=== PATIENT | female | born 1945 | race Asian ===

== ENCOUNTER 2016-04-09 12:29 | Emergency (ER) | payer OTHER ==
[~2016-04-09] VITALS: Ht 160 cm; Wt 64.0 kg
[2016-04-09 12:32] VITALS: Ht 160 cm; Wt 64.0 kg
[2016-04-09] MEDS ORDERED: ONDANSETRON 4 MG INJ IV STA (13:14)
[2016-04-09] MEDS ORDERED: HYDROmorphONE 1 MG/ML SYG IV STA (13:14)
[2016-04-09 13:53] LABS: BASOPHILS % 0.1 % (0.0-2.0); EOSINOPHILS % 0.1 % (0.0-7.0); HEMATOCRIT 32.6 % (37.0-47.0); HEMOGLOBIN 11.2 g/dl (12.0-16.0); LYMPHOCYTES # 0.6 10^3/ul (0.8-2.9); LYMPHOCYTES % 4.7 % (15.0-51.0); MEAN CORPUSCULAR HEMOGLOBIN 31.3 pg (29.0-33.0); MEAN CORPUSCULAR HGB CONC 34.2 g/dl (32.0-37.0); MEAN CORPUSCULAR VOLUME 91.6 fl (82.0-101.0); MEAN PLATELET VOLUME 7.3 fl (7.4-10.4); MONOCYTE # 1.2 10^3/ul (0.3-0.9); MONOCYTES % 10.6 % (0.0-11.0); NEUTROPHILS % 84.5 % (39.0-77.0); PLATELET COUNT 188 10^3/UL (140-440); RED BLOOD COUNT 3.56 10^6/ul (4.20-5.40); RED CELL DISTRIBUTION WIDTH 12.7 % (11.5-14.5); UNCORRECTED WBC 11.8 10^3/ul (4.8-10.8); WHITE BLOOD COUNT 11.8 10^3/ul (4.8-10.8)
[2016-04-09 13:58] LABS: POTASSIUM 3.8 mmol/L (3.5-5.1)
[2016-04-09 14:00] LABS: CREATININE 0.91 mg/dl (0.44-1.00)
[2016-04-09 14:01] LABS: ALBUMIN/GLOBULIN RATIO 0.93; CALCIUM 8.4 mg/dl (8.4-10.2); TOTAL PROTEIN 6.2 g/dl (6.1-8.1)
[2016-04-09 14:03] LABS: CONDITION 1
--- NOTE | 2016-04-09 14:37 | RADRPT ---
PROCEDURE: US Abdomen (right upper quadrant). CLINICAL INDICATION: Abdominal pain. TECHNIQUE: Multiple real-time longitudinal and transverse images of the right upper quadrant of th e abdomen were acquired utilizing a curved array transducer. Images were reviewed on a high-resoluti on PACS workstation. COMPARISON: None FINDINGS: The liver is normal in size and echogenicity without focal mass or intrahepatic biliary dilatation. Multiple stones are present within the gallbladder. The gallbladder wall is mildly thickened measu ring 4 mm. No intrahepatic biliary dilatation is seen. The common bile duct is prominent measuri ng 7.3 mm in maximal dimension. The visualized portions of the pancreas are unremarkable with obscu ration of the tail of the pancreas. No free fluid is identified. The right kidney measures 10.3 cm in length. There is normal echogenicity within the right kidney. There is no perinephric fluid collection. No hydronephrosis, mass, or calculus is seen. IMPRESSION: 1. Cholelithiasis with gallbladder wall thickening. The findings may represent acute calculus chol ecystitis in the correct clinical setting. 2. Prominent common bile duct (7.3 mm). Correlate with bilirubin levels. If there is concern for choledocholithiasis/cholestasis, consider MRCP. RPTAT: QQ .Jean-Pierre Glass MD, Date Time Electronically viewed and signed by .Jean-Pierre Glass MD, MD on 04/09/2016 14:36 .A/
[2016-04-09] MEDS ORDERED: ERTAPENEM SODIUM 1 GM in SOD CHLORIDE 0.9% 100 ML IVPB ONE (15:00)
--- NOTE | 2016-04-09 16:03 | ERA ---
ER Documentation Chief Complaint Date/Time DATE: 04/09/16 TIME: 16:01 Chief Complaint ap x 2 days with vomiting HPI This 70-year-old female who is complaining of 2 days of epigastric pain with low -grade fever and vomiting. She says she has had pain off and on for the past week but again more consistent in the past few days. She says the pain is worse after eating. No diarrhea no chest pain shortness of breath. No blood or bile in her vomit ROS All systems reviewed and are negative except as per history of present illness. Medications Home Meds No Active Prescriptions or Reported Meds Allergies Allergies: Coded Allergies: No Known Allergy (Unverified , 04/09/16) PMhx/Soc History of Surgery: Yes (left knee sx) Anesthesia Reaction: No Hx Neurological Disorder: No Hx Respiratory Disorders: No Hx Cardiac Disorders: Yes (HTN) Hx Psychiatric Problems: No Hx Miscellaneous Medical Probl: No Hx Alcohol Use: No Hx Substance Use: No Hx Tobacco Use: No Smoking Status: Never smoker FmHx Family History: No coronary disease Physical Exam Vitals Vital Signs Date Time Temp Pulse Resp B/P Pulse Ox O2 Delivery O2 Flow Rate FiO2 04/09/16 12:32 100.1 87 20 124/59 99 Physical Exam Const: Well-developed, well-nourished Head: Atraumatic, normocephalic Eyes: Normal Conjunctiva, PERRLA, EOMI, normal sclera, no nystagmus ENT: Normal External Ears, Nose and Mouth, moist mucus membranes. Neck: Full range of motion. No meningismus, no lymphadenopathy. Resp: Clear to auscultation bilaterally, no wheezing, rhonchi, rales Cardio: Regular rate and rhythm, no murmurs, S1 S2 present Abd: Soft, moderate epigastric and right upper quadrant tenderness non distended. Normal bowel sounds, no guarding or rebound, no pulsitile abdominal masses or bruits Skin: No petechiae or rashes, no ecchymosis , no maculopapular rash Back: No midline or flank tenderness Ext: No cyanosis, or edema, FROM x 4, normal inspection, neurovascularly intact x 4 Neur: Awake and alert, STR 5/5 x 4, sensation intact x 4, no focal findings, cerebellum intact Psych: Normal Mood and Affect Result Diagram: 04/09/16 1340 04/09/16 1340 Results 24 hrs Laboratory Tests Test 04/09/16 13:40 Alanine Aminotransferase (ALT/SGPT) 46IU/L Albumin 3.0g/dl Albumin/Globulin Ratio 0.93 Alkaline Phosphatase 116IU/L Anion Gap 14 Aspartate Amino Transf (AST/SGOT) 40IU/L Basophils # 0.010^3/ul Basophils % 0.1% Blood Morphology Comment Blood Urea Nitrogen 22mg/dl Calcium Level 8.4mg/dl Carbon Dioxide Level 26mmol/L Chloride Level 100mmol/L Creatinine 0.91mg/dl Direct Bilirubin 0.00mg/dl Eosinophils # 0.010^3/ul Eosinophils % 0.1% Globulin 3.20g/dl Glucose Level 157mg/dl Hematocrit 32.6% Hemoglobin 11.2g/dl Indirect Bilirubin 0.0mg/dl Lipase 75U/L Lymphocytes # 0.610^3/ul Lymphocytes % 4.7% Mean Corpuscular Hemoglobin 31.3pg Mean Corpuscular Hemoglobin Concent 34.2g/dl Mean Corpuscular Volume 91.6fl Mean Platelet Volume 7.3fl Monocytes # 1.210^3/ul Monocytes % 10.6% Neutrophils # 10.010^3/ul Neutrophils % 84.5% Nucleated Red Blood Cells # 0.010^3/ul Nucleated Red Blood Cells % 0.0/100WBC Platelet Count 67383^3/UL Potassium Level 3.8mmol/L Red Blood Count 3.5610^6/ul Red Cell Distribution Width 12.7% Sodium Level 136mmol/L Total Bilirubin 0.0mg/dl Total Protein 6.2g/dl White Blood Count 11.810^3/ul Current Medications Medications (Trade) Dose Ordered Sig/Keny Route PRN Reason Start Time Stop Time Status Last Admin Dose Admin Hydromorphone HCl (Dilaudid) 1 mg ONCE STAT IV 04/09/16 13:14 04/09/16 13:15 DC 04/09/16 13:45 Ondansetron HCl 4 mg 4 mg ONCE STAT IV 04/09/16 13:14 04/09/16 13:15 DC 04/09/16 13:45 Ertapenem/Sodium Chloride (Invanz/NS) 100 ml @ 200 mls/hr ONCE ONCE IVPB 04/09/16 15:00 04/09/16 15:29 DC Procedures/MDM PROCEDURE: US Abdomen (right upper quadrant). CLINICAL INDICATION: Abdominal pain. TECHNIQUE: Multiple real-time longitudinal and transverse images of the right upper quadrant of the abdomen were acquired utilizing a curved array transducer. Images were reviewed on a high-resolution PACS workstation. COMPARISON: None FINDINGS: The liver is normal in size and echogenicity without focal mass or intrahepatic biliary dilatation. Multiple stones are present within the gallbladder. The gallbladder wall is mildly thickened measuring 4 mm. No intrahepatic biliary dilatation is seen. The common bile duct is prominent measuring 7.3 mm in maximal dimension. The visualized portions of the pancreas are unremarkable with obscuration of the tail of the pancreas. No free fluid is identified. The right kidney measures 10.3 cm in length. There is normal echogenicity within the right kidney. There is no perinephric fluid collection. No hydronephrosis, mass, or calculus is seen. IMPRESSION: 1. Cholelithiasis with gallbladder wall thickening. The findings may represent acute calculus cholecystitis in the correct clinical setting. 2. Prominent common bile duct (7.3 mm). Correlate with bilirubin levels. If there is concern for choledocholithiasis/cholestasis, consider MRCP. RPTAT: QQ .Jean-Pierre Glass MD, MD Date Time Electronically viewed and signed by .Jean-Pierre Glass MD, on 04/09/2016 14:36 .A/ CC: YEIMI RAO DO Patient has evidence of cholecystitis, fever, slight white count elevation with left shift, LFTs are normal. Spoke with general surgery Dr. Elmore and the patient will be admitted if approved by insurance otherwise will be transferred out Given 1 g of Invanz Departure Diagnosis: Primary Impression: Cholecystitis Condition: Stable YEIMI RAO DO Apr 09, 2016 16:03
--- NOTE | 2016-04-09 17:32 | RADRPT ---
PROCEDURE: MRI abdomen without contrast; MRCP CLINICAL INDICATION: abdominal pain TECHNIQUE: Multiplanar, multisequence imaging of the abdomen was obtained. Imaging includes axial and coronal T2, T2 fat sat images In addition, a dedicated high T2 signal intensity MRCP images were obtained in multiple planes with 3-D reconstructions. COMPARISON: Ultrasound of the same date FINDINGS: There are mild inflammatory changes seen around the pancreas with fat stranding. Trace fluid is see n in the peripancreatic space which tracts inferiorly within the retroperitoneum. There is trace in tra-abdominal ascites as well. The pancreatic parenchyma is homogeneous without evidence of necrosi s. There is no elevated T1 signal to suggest hemorrhage. There is no evidence of fluid collection. There is 7 mm rounded T2 hyperintensity seen in the pancreatic head likely a small cyst. Numerous gallstones are seen layering in the gallbladder. There is mild gallbladder wall thickening with trace pericholecystic fluid. There is no intrahepatic biliary ductal dilatation. The common duct measures up to 5 mm in diameter which is nondilated. No filling defect is seen in the common duct. There is uniform signal intensity of the liver without evidence of mass. There is mild hepatomegaly. There is no abnormal enhancement. The portal vein demonstrates a flow void The kidneys appear symmetric without hydronephrosis or mass. There is mild fat stranding around the left kidney which is indeterminate. The adrenal glands moderate within normal limits. There is no evidence of bowel obstruction . There is a fecal filled colon. Aortic atherosclerosis is present. There are degenerative changes of the lumbar spine. IMPRESSION: There are mild to moderate inflammatory changes around the pancreas consistent with acute pancreatit is. There is no evidence of hemorrhage, necrosis, or fluid collection. A 7 mm pancreatic cyst is se en within the pancreatic head which can be reassessed after 6 months. Numerous gallstones are seen with findings suggestive for possible cholecystitis and this can be con firmed with nuclear medicine study. There is no intrahepatic or extrahepatic biliary ductal dilatation with no visible stones. If there is further concern ERCP can be performed. Hepatomegaly. Mild left perinephric fat stranding may be secondary inflammation and can be correlated with urinaly sis. Fecal filled colon. RPTAT: AA .Janes Boo MD, MD Date Time Electronically viewed and signed by .Janes Boo MD, MD on 04/09/2016 17:32 .J/
--- NOTE | 2016-04-09 17:50 | CONS ---
DATE OF ADMISSION: 04/09/2016 DATE OF CONSULTATION: 04/09/2016 HISTORY OF PRESENT ILLNESS: Mr. Beard is a 70-year-old female who presented to [facility] due to epigastric abdominal pain and low grade fever with nausea and emesis. She has had sy mptoms for the past week, but worsened today. She denies prior episodes. PAST MEDICAL HISTORY: Hypertension. PAST SURGICAL HISTORY: She had a knee surgery. MEDICATIONS: Antihypertension medications. SOCIAL HISTORY: Denies drinking, drug use or smoking. PHYSICAL EXAMINATION: GENERAL: She is a well-nourished, well-developed female in no apparent distress. VITAL SIGNS: She is currently T-max 100.1, heart rate 87, BP 136/88. CHEST: Clear to auscultation bilaterally. HEART: Regular rhythm. ABDOMEN: Soft, nondistended with some slight epigastric tenderness. An ultrasound revealed cholelithiasis with gallbladder wall thickening. LABORATORY DATA: Revealed white count of 12, hematocrit 33 and platelets of 188. Sodium 136, potas sium 3.8, chloride 100, CO2 26, BUN and creatinine 22 and 0.9 and glucose of 157. ASSESSMENT AND PLAN: Mr. Beard is a 70-year-old female with biliary colic versus acute cholecystitis . I discussed proceeding with a laparoscopic cholecystectomy on this admission. The patient wishes to proceed. We will proceed if the patient is not transferred out to another hospital. I discusse d laparoscopic, possible open cholecystectomy, possible cholangiogram with the patient and the daugh ter. All benefits, risks, alternatives were discussed in detail. Questions answered. The patient elects to proceed. Dictated By: WILDER JUNE/LARISSA Conf#: [id number] DID#: [id number]
[2016-04-09 19:04] VITALS: BP 141/63; PULSE 97; RESP 20; TEMP 101.8
[2016-04-09] MEDS ORDERED: ACETAMINOPHEN 325 MG TAB ONE (19:19)
[2016-04-09] MEDS ORDERED: ACETAMINOPHEN 325 MG TAB PO ONE (19:30)
== END 2016-04-09 19:20 | disposition short-term general hospital (02) ==
LOC: E/R 12:29
DX: K81.9 Cholecystitis, unspecified (principal); I10 Essential (primary) hypertension; R11.10 Vomiting, unspecified
CPT/HCPCS: 74181; 76705; 80053; 83690; 85025; 96374; 96375; J1170; J1335; J2405; Z7502; Z7610

== ENCOUNTER 2016-05-09 22:10 | Emergency (ER) | payer OTHER ==
[~2016-05-09] VITALS: Ht 152.4 cm; Wt 81.0 kg
[2016-05-09 22:16] VITALS: Ht 152.4 cm; Wt 81.0 kg
[2016-05-10] MEDS ORDERED: SOD CHLORIDE 0.9% 500 ML IV STA (00:29)
[2016-05-10] MEDS ORDERED: morphine 4 MG/ML VIAL IV STA (00:29)
[2016-05-10] MEDS ORDERED: LIDOCAINE/MYLANTA 40 ML BTL PO STA (00:29)
[2016-05-10] MEDS ORDERED: FAMOTIDINE 20 MG INJ IV STA (00:29)
[2016-05-10] MEDS ORDERED: ONDANSETRON 4 MG INJ IV STA (00:29)
[2016-05-10 01:15] LABS: ADD UMIC NO; URINE BILIRUBIN (Dip) NEGATIVE (NEGATIVE); URINE BLOOD (Dip) NEGATIVE (NEGATIVE); URINE COLOR LT. YELLOW (YELLOW); URINE GLUCOSE (Dip) NEGATIVE (NEGATIVE); URINE KETONES (Dip) NEGATIVE (NEGATIVE); URINE LEUKOCYTE ESTERASE (Dip) NEGATIVE (NEGATIVE); URINE NITRITE (Dip) NEGATIVE (NEGATIVE); URINE TOTAL PROTEIN (Dip) NEGATIVE (NEGATIVE); URINE UROBILINOGEN (Dip) 0.2 E.U./dL (0.1-1.0)
[2016-05-10 01:17] LABS: BASOPHILS % 0.5 % (0.0-2.0); EOSINOPHILS # 0.4 10^3/ul (0.0-0.5); EOSINOPHILS % 4.8 % (0.0-7.0); HEMATOCRIT 32.2 % (37.0-47.0); HEMOGLOBIN 10.8 g/dl (12.0-16.0); LYMPHOCYTES # 2.1 10^3/ul (0.8-2.9); LYMPHOCYTES % 28.2 % (15.0-51.0); MEAN CORPUSCULAR HEMOGLOBIN 31.4 pg (29.0-33.0); MEAN CORPUSCULAR HGB CONC 33.7 g/dl (32.0-37.0); MEAN CORPUSCULAR VOLUME 93.4 fl (82.0-101.0); MEAN PLATELET VOLUME 7.6 fl (7.4-10.4); MONOCYTE # 0.7 10^3/ul (0.3-0.9); MONOCYTES % 8.8 % (0.0-11.0); NEUTROPHIL # 4.3 10^3/ul (1.6-7.5); NEUTROPHILS % 57.7 % (39.0-77.0); PLATELET COUNT 278 10^3/UL (140-440); RED BLOOD COUNT 3.45 10^6/ul (4.20-5.40); RED CELL DISTRIBUTION WIDTH 14.8 % (11.5-14.5); UNCORRECTED WBC 7.4 10^3/ul (4.8-10.8); WHITE BLOOD COUNT 7.4 10^3/ul (4.8-10.8)
[2016-05-10 01:19] LABS: CONDITION 1; LH ANALYZER COMMENTS 1
[2016-05-10 01:27] LABS: ALBUMIN 4.2 g/dl (3.3-4.9); CHLORIDE 107 mmol/L (97-110)
[2016-05-10 01:28] LABS: POTASSIUM 4.6 mmol/L (3.5-5.1); SODIUM 147 mmol/L (135-144)
[2016-05-10 01:30] LABS: ALANINE AMINOTRANSFERASE 21 IU/L (13-69); ALKALINE PHOSPHATASE 83 IU/L (42-121); ANION GAP 19 (8-16); ASPARTATE AMINO TRANSFERASE 34 IU/L (15-46); BLOOD UREA NITROGEN 14 mg/dl (7-20); CARBON DIOXIDE 26 mmol/L (21-31); CREATININE 0.63 mg/dl (0.44-1.00); TOTAL PROTEIN 7.7 g/dl (6.1-8.1)
[2016-05-10 01:31] LABS: CALCIUM 9.2 mg/dl (8.4-10.2); GLUCOSE 89 mg/dl (70-220)
[2016-05-10 01:43] LABS: TROPONIN-I < 0.012 ng/ml (0.00-0.12)
--- NOTE | 2016-05-10 01:51 | RADRPT ---
PROCEDURE: XR Chest. CLINICAL INDICATION: Abdominal pain TECHNIQUE: Rule AP portable chest COMPARISON: None. FINDINGS: Cardiomegaly with tortuosity and ectasia of the thoracic aorta. .The lungs are clear without pleura l effusion or focal consolidation. No pneumothorax. The osseous structures and soft tissues are unre markable. IMPRESSION: 1. No evidence for active cardiopulmonary disease. 2. Cardiomegaly. RPTAT:AAJJ Vikki Gonzalez Physician Date Time Electronically viewed and signed by Vikki Gonzalez Physician on 05/10/2016 01:51 ANGELO/
[2016-05-10] MEDS ORDERED: ONDA4TAB14 PO (01:53)
[2016-05-10] MEDS ORDERED: RANI150T9 PO (01:53)
[2016-05-10] MEDS ORDERED: TRAM50TA2 PO (01:53)
--- NOTE | 2016-05-10 02:00 | ERD ---
ER Documentation Chief Complaint Date/Time DATE: 05/10/16 TIME: 01:55 Chief Complaint pt recent dx with stomach ulcer HPI This is a 70-year-old female comes over once of abdominal pain. Recently diagnosed with stomach ulcer versus stomach cancer. Patient has follow-up appointment with oncology in 4-5 days. Pain is mild to moderate intensity burning in sensation. No other current complaints. ROS All systems reviewed and are negative except as per history of present illness. Medications Home Meds Active Scripts Ondansetron (Ondansetron Odt) 4 Mg Tab.rapdis, 4 MG PO Q6H Y for NAUSEA AND/OR VOMITING, #10 TAB Prov:MATY RINCON 05/10/16 Ranitidine Hcl* (Zantac*) 150 Mg Tablet, 150 MG PO BID Y for EPIGASTRIC PAIN, # 30 TAB Prov:MATY RINCON. 05/10/16 Tramadol HCl (Tramadol HCl) 50 Mg Tablet, 50 MG PO Q4 Y for PAIN, #20 TAB Prov:MATY RINCON 05/10/16 Allergies Allergies: Coded Allergies: No Known Allergy (Unverified , 04/09/16) PMhx/Soc History of Surgery: Yes (left knee sx, GALLSTONE REMOVAL) Anesthesia Reaction: No Hx Neurological Disorder: No Hx Respiratory Disorders: No Hx Cardiac Disorders: Yes (HTN) Hx Psychiatric Problems: No Hx Miscellaneous Medical Probl: No Hx Alcohol Use: No Hx Substance Use: No Hx Tobacco Use: No Smoking Status: Never smoker Physical Exam Vitals Vital Signs Date Time Temp Pulse Resp B/P Pulse Ox O2 Delivery O2 Flow Rate FiO2 05/09/16 22:16 98.5 85 18 149/68 98 Physical Exam Const: [] Head: Atraumatic Eyes: Normal Conjunctiva ENT: Normal External Ears, Nose and Mouth. Neck: Full range of motion..~ No meningismus. Resp: Clear to auscultation bilaterally Cardio: Regular rate and rhythm, no murmurs Abd: Soft, non tender, non distended. Normal bowel sounds Skin: No petechiae or rashes Back: No midline or flank tenderness Ext: No cyanosis, or edema Neur: Awake and alert Psych: Normal Mood and Affect Result Diagram: 05/10/16 0050 05/10/16 0050 Results 24 hrs Laboratory Tests Test 05/10/16 00:01 05/10/16 00:50 Urine Bilirubin NEGATIVE Urine Clarity CLEAR Urine Color LT. YELLOW Urine Glucose NEGATIVE% Urine Hemoglobin NEGATIVE Urine Ketones NEGATIVE Urine Leukocyte Esterase NEGATIVE Urine Nitrite NEGATIVE Urine Specific [place] 1.010 Urine Total Protein NEGATIVE Urine Urobilinogen 0.2 E.U./dL Urine pH 7.0 Alanine Aminotransferase (ALT/SGPT) 21IU/L Albumin 4.2g/dl Albumin/Globulin Ratio 1.20 Alkaline Phosphatase 83IU/L Anion Gap 19 Aspartate Amino Transf (AST/SGOT) 34IU/L Basophils # 0.010^3/ul Basophils % 0.5% Blood Morphology Comment Blood Urea Nitrogen 14mg/dl Calcium Level 9.2mg/dl Carbon Dioxide Level 26mmol/L Chloride Level 107mmol/L Creatinine 0.63mg/dl Direct Bilirubin 0.00mg/dl Eosinophils # 0.410^3/ul Eosinophils % 4.8% Globulin 3.50g/dl Glucose Level 89mg/dl Hematocrit 32.2% Hemoglobin 10.8g/dl Indirect Bilirubin 0.0mg/dl Lipase 132U/L Lymphocytes # 2.110^3/ul Lymphocytes % 28.2% Mean Corpuscular Hemoglobin 31.4pg Mean Corpuscular Hemoglobin Concent 33.7g/dl Mean Corpuscular Volume 93.4fl Mean Platelet Volume 7.6fl Monocytes # 0.710^3/ul Monocytes % 8.8% Neutrophils # 4.310^3/ul Neutrophils % 57.7% Nucleated Red Blood Cells # 0.010^3/ul Nucleated Red Blood Cells % 0.0/100WBC Platelet Count 83938^3/UL Potassium Level 4.6mmol/L Red Blood Count 3.4510^6/ul Red Cell Distribution Width 14.8% Sodium Level 147mmol/L Total Bilirubin 0.0mg/dl Total Protein 7.7g/dl Troponin I < 0.012ng/ml White Blood Count 7.410^3/ul Current Medications Medications (Trade) Dose Ordered Sig/Keny Route PRN Reason Start Time Stop Time Status Last Admin Dose Admin Sodium Chloride (NS) 500 ml @ 500 mls/hr Q1H STAT IV 05/10/16 00:29 05/10/16 01:28 DC 05/10/16 00:54 Morphine Sulfate (morphine) 4 mg ONCE STAT IV 05/10/16 00:29 05/10/16 00:30 DC 05/10/16 00:54 Ondansetron HCl (Zofran Inj) 4 mg ONCE STAT IV 05/10/16 00:29 05/10/16 00:30 DC 05/10/16 00:54 Famotidine (Pepcid Iv) 20 mg ONCE STAT IV 05/10/16 00:29 05/10/16 00:30 DC 05/10/16 00:54 Miscellaneous Medication (Gi Cocktail (2)) 40 ml ONCE STAT PO 05/10/16 00:29 05/10/16 00:30 DC 05/10/16 00:54 Procedures/MDM Medical decision makin-year-old female with abdominal pain. Abdominal pain has since resolved. At this point is clinically stable for outpatient management. She will be discharged home. Follow-up with PCP. Return in 8 hours for serial abdominal exams. Departure Diagnosis: Primary Impression: Abdominal pain Abdominal location: epigastric Qualified Code: R10.13 - Epigastric pain Condition: Stable Patient Instructions: Abdominal Pain MATY RINCON May 10, 2016 02:00
[2016-05-10 02:20] VITALS: BP 115/62; PULSE 67; RESP 18; TEMP 98.5
== END 2016-05-10 02:20 | disposition home or self-care (01) ==
LOC: E/R 22:10
DX: R10.13 Epigastric pain (principal); I10 Essential (primary) hypertension
CPT/HCPCS: 36415; 71010; 80053; 81003; 83690; 84484; 85025; 93005; 96374; 96375; J2270; J2405; J7040; Z7502; Z7610

== ENCOUNTER 2016-07-18 12:36 | Day surgery (SDC) | payer OTHER ==
[~2016-07-18] VITALS: Ht 149.9 cm; Wt 57.4 kg
[~2016-07-18 12:36] MED LIST: ONDA4TAB14 PO; RANI150T9 PO; TRAM50TA2 PO
[2016-07-18 13:25] VITALS: Ht 149.9 cm; Wt 57.4 kg
[2016-07-18] MEDS ORDERED: FER325 PO (13:42)
[2016-07-18] MEDS ORDERED: MONT4TAB10 PO (13:42)
[2016-07-18] MEDS ORDERED: PANT40TA4 PO (13:42)
[2016-07-18] MEDS ORDERED: MECL-77 PO (13:42)
[2016-07-18] MEDS ORDERED: OMEP40CA6 PO (13:42)
[2016-07-18] MEDS ORDERED: AMLO-147 PO (13:42)
[2016-07-18 13:57] VITALS: BP 134/64; PULSE 68; RESP 17
[2016-07-18] MEDS ORDERED: PROPOFOL 20 ML ONE (15:41)
[2016-07-18 16:18] VITALS: BP 137/61; RESP 20
--- NOTE | 2016-07-19 04:11 | GILP ---
DATE OF PROCEDURE: 07/18/2016 PROCEDURE: Esophagogastroduodenoscopy with biopsies. BRIEF HISTORY AND INDICATIONS: The patient is being evaluated for dyspepsia. PREMEDICATION: Monitored anesthesia care by anesthesiologist. SURGEON: Bella Lemus MD. INSTRUMENT USED: Olympus panendoscopy TECHNIQUE: After informed consent, with the patient/relatives understanding the procedure, its venkata cations, potential risks and complications, including but not limited to: allergic reaction, bleedin g, perforation or infection, and after all pertinent questions were answered to the patient's satisf action, the patient/relatives signed witnessed informed consent. Following this, premedication was administered slowly IV push under careful cardiovascular and respi ratory monitoring with pulse oximetry, automatic blood pressure and aircraft powertrain repairer. Once the sedative effect was achieved the patient was place in the left lateral decubitus, the panen doscope was introduced and advanced under visual control. FINDINGS: Careful examination of the upper gastrointestinal tract, both on insertion as well as wit hdrawal of the instrument disclosed the following findings: ESOPHAGUS: The mucosa of the entire esophagus appears within normal limits. There is no evidence of esophagitis, varices, neoplasm or stricture. No hiatal hernia identified. STOMACH: Upon entrance to the stomach air was insufflated, the gastric gray distended normally. T he mucosa of the fundus, body and antrum of the stomach was carefully examined, shows erythema and e riana of the mucosa of a moderate degree. Biopsies were obtained to rule out H. pylori infection. PYLORUS: The pylorus appears patent and within normal limits, with no evidence of gastric outlet ob struction. DUODENUM: The duodenal mucosa was carefully examined in the duodenal bulb as well as the second por tion of the duodenum and appears unremarkable with no evidence of duodenitis, ulcer or neoplasm. The instrument was then withdrawn, the patient tolerated the procedure well and was transfer out of the endoscopy suite awake, and in good condition to continue recovery under observation IMPRESSION: Moderate gastritis, rule out Helicobacter pylori infection, biopsies obtained. PLAN: The patient will be treated with PPIs. Further recommendation will depend on her clinical co urse as well as review of biopsies. Dictated By: BELLA LEMUS MS/LARISSA Conf#: [id number] DID#: [id number]
--- NOTE | 2016-07-19 04:19 | GILP ---
DATE OF PROCEDURE: PROCEDURE: Colonoscopy to cecum. PREMEDICATION: Monitored anesthesia care by anesthesiologist. SURGEON: Bella Lemus MD INSTRUMENT USED: Olympus colonoscope. PREPARATION: Adequate. TECHNIQUE: After informed consent, with the patient/relatives understanding the procedure, its venkata cations potential risks and complications, including but not limited to: allergic reaction, bleeding , perforation, infection, missed lesions and after all pertinent questions were answered to the diane ent's satisfaction, the patient/relatives signed the witnessed informed consent. Following this, pre medication was administered slowly IV push by under careful cardiovascular and respiratory monitorin g with pulse oximetry, automatic blood pressure and hemstitcher. Once the sedative effect was achiev ed, the patient was placed in the left lateral decubitus position, digital rectal examination was pe rformed. The colonoscope was then introduced and advanced under visual control throughout all segmen ts of the colon including: the rectum, sigmoid, descending colon, splenic flexure, transverse colon, hepatic flexure, ascending colon and finally reaching the cecum which was clearly identified by tra nsillumination, finger indentation and the ileocecal valve. FINDINGS: Careful examination of the mucosa of the lower gastrointestinal tract both on insertion a s well as withdrawal of the instrument disclosed the following findings: Rectal Examination: No evidence of perirectal disease, no masses. Colonic Mucosa: The colonic mucosa is essentially unremarkable. Unfortunately, the preparation is in the right side of the colon in particular is poor with 30% of the mucosa obscured and inadequatel y examined. The ileocecal valve was clearly identified. No gross lesions are present. The instrum ent was withdrawn. On withdrawal of the instrument, no additional abnormalities are noted with exce ption of moderate sized internal hemorrhoids. The instrument was then withdrawn, the patient tolerated the procedure well and was transferred out of the Endoscopy Suite awake and in good condition to continue recovery under observation. IMPRESSION: 1. Poor preparation right side of the colon (30% of the mucosa obscured). No gross lesions. 2. Moderate sized internal hemorrhoids. PLAN: The patient will follow up as an outpatient. Reevaluation in 6 months to a year is recommend ed. Dictated By: BELLA LEMUS MS/LARISSA Conf#: [id number] DID#: [id number]
== END 2016-07-18 16:07 | disposition home or self-care (01) ==
LOC: GIL 12:36
PROVIDERS: ATTEND Internal Medicine Gastroenterology
DX: Z12.11 Encounter for screening for malignant neoplasm of colon (principal); K64.8 Other hemorrhoids; K29.70 Gastritis, unspecified, without bleeding; J45.909 Unspecified asthma, uncomplicated; I10 Essential (primary) hypertension; E78.00 Pure hypercholesterolemia, unspecified
CPT/HCPCS: 43239; 45378; 88305; 88312; Z7610

== ENCOUNTER 2017-01-09 12:28 | Day surgery (SDC) | payer OTHER ==
[~2017-01-09] VITALS: Ht 144.8 cm; Wt 57.9 kg
[~2017-01-09 12:28] MED LIST changes: +AMLO-147 PO; +FER325 PO; +MECL-77 PO; +MONT4TAB10 PO; +OMEP40CA6 PO; -ONDA4TAB14 PO; +PANT40TA4 PO; -RANI150T9 PO; -TRAM50TA2 PO
[2017-01-09] MEDS ORDERED: TRAMADOL (13:17)
[2017-01-09] MEDS ORDERED: COSAMIN (13:17)
[2017-01-09] MEDS ORDERED: HAIR (13:20)
[2017-01-09] MEDS ORDERED: MELOXICAM (13:20)
[2017-01-09] MEDS ORDERED: MULTI-VIT (13:20)
[2017-01-09] MEDS ORDERED: GLUC-137 PO (13:20)
[2017-01-09] MEDS ORDERED: BENAZIPRIL (13:20)
[2017-01-09] MEDS ORDERED: OMEPRAZOLE (13:20)
[2017-01-09] MEDS ORDERED: DICLOFENAC (13:20)
[2017-01-09] MEDS ORDERED: SKIN (13:20)
[2017-01-09 13:21] VITALS: Ht 144.8 cm; Wt 57.9 kg
[2017-01-09] MEDS ORDERED: PROPOFOL 20 ML ONE (15:16)
--- NOTE | 2017-01-09 15:45 | OPPN ---
Date/Time of Note Date/Time of Note DATE: 01/09/17 TIME: 15:41 Proc Note GI Procedure Date 01/09/17 Indication: screening/surveillance Pre-procedure Diagnosis CRC screening Post-procedure Diagnosis Impression: Normal colonic mucosa to cecum Moderate-sized internal hemorrhoids Plan: Follow up as scheduled] High fiber diet Annual hemoccult stool testing [Screening colonoscopy in 10 years] Procedure Performed: Colonoscopy Surgeon KHOI EID MD See signature line Visual Merchandising Coordinator none Anesthesia Type: MAC Anesthesiologist: DEISY MONTE MD Tourniquet Time none EBL none Transfusion required none Biopsy 1: None Grafts/Implants none Tubes/Drains none Complication(s) none Disposition: home Procedure Description After informed consent, with the patient/relatives understanding the procedure, its indications and potential risks and complications, including but not limited to: Allergic reaction, bleeding, perforation, infection, and after all pertinent questions were answered to the patient's satisfaction, the patient/ relatives signed the witnessed informed consent. Following this, premedication was administered slowly IV push under careful cardiovascular and respiratory monitoring with pulse OX[employer], automatic blood pressure, and ekg monitor tech. Once the sedative effect was achieved, the patient was placed in the left lateral decubitus position, digital rectal examination was performed. The colonoscope was then introduced and advanced under visual control throughout all segments of the colon including: the rectum, sigmoid, descending colon, splenic flexure, transverse colon, hepatic flexure, ascending colon and finally reaching the cecum which was clearly identified by transillumination, finger indentation and the ileocecal valve. Careful examination of the mucosa of the lower gastrointestinal tract both on insertion as well as withdrawal of the instrument disclosed the following findings: PREPARATION QUALITY: [Adequate], RECTAL EXAM: The anorectal area was visualized examined and digital rectal examination performed with the following findings: No evidence of perirectal disease, no masses. COLONIC MUCOSA: The mucosa of all segments of the colon was carefully examined and showed the following findings: the examined mucosa appears within normal limits. There is no evidence of inflammatory changes, diverticular formation, polyps or other neoplasms, vascular malformation, or any other abnormality. Moderate-sized internal hemorrhoids The instrument was then withdrawn, the patient tolerated the procedure well and was transferred out of the Endoscopy Suite awake and in good condition to continue recovery under observation. Copies To: CC: KHOI EID MD, MORDO MD Jan 09, 2017 15:45
[2017-01-09 16:00] VITALS: BP 113/71; RESP 14
== END 2017-01-09 17:05 | disposition home or self-care (01) ==
LOC: GIL 12:28
PROVIDERS: ATTEND Internal Medicine Gastroenterology
DX: Z12.11 Encounter for screening for malignant neoplasm of colon (principal); K64.8 Other hemorrhoids; I10 Essential (primary) hypertension; E78.00 Pure hypercholesterolemia, unspecified; J45.909 Unspecified asthma, uncomplicated
CPT/HCPCS: 45378; Z7610